=== PATIENT | male | born 1950 | race Caucasian/White ===

== ENCOUNTER 2016-05-11 16:15 | Emergency (ER) | payer OTHER ==
[~2016-05-11] VITALS: Ht 177.8 cm; Wt 79.3 kg
[~2016-05-11 16:15] MED LIST: ASPIRIN81 M1; ASPIRIN81 M2 PO; CARDENE20 MG PO; CIPRO500 MG PO; DOXAZOSIN MESYLA2 MG PO; DOXYCYCLINE HY100 MG; ENDOCET 5-3251 EACH PO; FLAGYL500 MG PO; FLOMAX0.4 MG PO; GLIPIZIDE5 MG PO; JANUMET 50/51 TABLET; JANUMET 50/51 TABLET PO; PERCOCET 5/31 TABLET PO
[2016-05-11 17:17] LABS: POINT-OF-CARE METER ID UU13113778
[2016-05-11 18:15] LABS: MCH 30.5 PG (29.0-34.0); MCV 87.1 FL (86-99); MEAN PLAT.VOLUME 10.6 uM^3 (9.0-12.4); PLATELET COUNT 245 K/uL (156-360); RBC DIS.WIDTH-CV 12.2 % (11.8-14.6); RBC DIS.WIDTH-SD 38.7 % (39-53); RED BLOOD COUNT 5.28 M/uL (4.00-5.50); WHITE BLOOD COUNT 9.5 K/uL (4.1-10.2)
[2016-05-11 18:29] LABS: ADD MIUA? NO; BILIRUBIN NEGATIVE; BLOOD NEGATIVE; COLOR STRAW ((YELLOW)); GLUCOSE (STRIP) NEGATIVE; KETONES NEGATIVE; LEUKOCYTES NEGATIVE; NITRITE NEGATIVE; PROTEIN (STRIP) NEGATIVE; SPECIFIC GRAVITY 1.005 (1.000-1.030); UCUL ADDED? NO; UROBILINOGEN 0.2 MG/DL (0.2-1.0)
[2016-05-11 18:29] LABS: CHLORIDE 106 mEq/L (99-109); POTASSIUM 4.5 mEq/L (3.7-5.4); SODIUM 142 mEq/L (136-147)
[2016-05-11 18:31] LABS: GLUCOSE 164 mg/dL (70-99)
[2016-05-11 18:33] LABS: ANION GAP 9 MEQ/L (2-14); TOTAL BILIRUBIN 0.3 mg/dL (0.0-1.0)
[2016-05-11 18:35] LABS: ALKALINE PHOSPHATASE 62 IU/L (3-129); GFR ESTIMATE (CALCULATED) > 59 mL/min/
[2016-05-11 18:36] LABS: UREA NITROGEN (BUN) 19 mg/dL (9-23)
[2016-05-11 19:28] LABS: LIPASE 97 U/L (1.0-51.0)
[2016-05-11] MEDS ORDERED: ZOFRAN ODT4 MG PO (21:39)
[2016-05-11 21:57] VITALS: BP 142/92
== END 2016-05-11 21:57 | disposition home or self-care (01) ==
LOC: EME 16:15
DX: K85.90 Acute pancreatitis without necrosis or infection, unspecified (principal); R11.0 Nausea; E11.65 Type 2 diabetes mellitus with hyperglycemia; I10 Essential (primary) hypertension; Z87.442 Personal history of urinary calculi
CPT/HCPCS: 74177; 76705; 80053; 81003; 82948; 83690; 85027; 93005; 99281; 99285; J2405; J7030

== ENCOUNTER 2017-11-10 13:54 | Emergency (ER) | payer OTHER ==
[~2017-11-10] VITALS: Ht 177.8 cm; Wt 75.7 kg
[~2017-11-10 13:54] MED LIST changes: +ZOFRAN ODT4 MG PO
[2017-11-10 16:10] LABS: BASOPHIL (%) 0.2 % (0-1); EOSINOPHIL (%) 0.1 % (0-5); HEMATOCRIT 47.9 % (38.0-50.0); HEMOGLOBIN 16.9 G/DL (12.5-16.6); IMMATURE GRANULOCYTE (%) 0.2 % (0.0-0.7); LYMPHOCYTE (%) 7.2 % (15-42); LYMPHOCYTE COUNT 0.6 K/uL (1.0-2.8); MCH 30.9 PG (29.0-34.0); MCHC 35.3 G/DL (30.0-36.0); MCV 87.6 FL (86-99); MONOCYTE (%) 0.6 % (3-12); MONOCYTE COUNT 0.1 K/uL (0-0.8); NEUTROPHIL (%) 91.7 % (45-76); NEUTROPHIL COUNT 8.2 K/uL (1.8-6.4); PLATELET COUNT 224 K/uL (156-360); RBC DIS.WIDTH-CV 11.9 % (11.8-14.6); RBC DIS.WIDTH-SD 38.4 % (39-53); RED BLOOD COUNT 5.47 M/uL (4.00-5.50); WHITE BLOOD COUNT 8.9 K/uL (4.1-10.2)
[2017-11-10 16:17] LABS: CHLORIDE 101 mEq/L (99-109); POTASSIUM 4.9 mEq/L (3.7-5.4)
[2017-11-10 16:18] LABS: SODIUM 135 mEq/L (136-147)
[2017-11-10 16:19] LABS: GLUCOSE 345 mg/dL (70-99)
[2017-11-10 16:23] LABS: CREATININE 1.2 mg/dL (0.6-1.3); GFR ESTIMATE (CALCULATED) > 59 mL/min/ (58.99-99999)
[2017-11-10 16:24] LABS: UREA NITROGEN (BUN) 18 mg/dL (9-23)
[2017-11-10 17:40] VITALS: BP 136/79
== END 2017-11-10 17:48 | disposition home or self-care (01) ==
LOC: EME 13:54
PROVIDERS: Emergency Medicine
DX: E11.65 Type 2 diabetes mellitus with hyperglycemia (principal); I10 Essential (primary) hypertension; Z87.442 Personal history of urinary calculi; Z79.84 Long term (current) use of oral hypoglycemic drugs; Z79.82 Long term (current) use of aspirin; Z88.5 Allergy status to narcotic agent
CPT/HCPCS: 80048; 82010; 82803; 82948; 85025; 99281; 99284; J7030